=== PATIENT | male | born 1970 | race American Indian/Alaskan Native ===

== ENCOUNTER 2020-07-23 09:28 | Emergency (ER) | payer OTHER ==
[~2020-07-23] VITALS: Ht 188 cm; Wt 106.0 kg
[~2020-07-23 09:28] MED LIST: AZIT250 PO; BLOOD PRESSURE; ESOM20 PO; HYDACE5 PO; NAPR500 PO; OXYACE5T PO; PRAHYD1AE TOP; RXOXYACE PO; TERB24TC TOP
== END 2020-07-23 11:26 | disposition home or self-care (01) ==
LOC: ER 09:28
DX: K42.9 Umbilical hernia without obstruction or gangrene (principal); I10 Essential (primary) hypertension; Z88.6 Allergy status to analgesic agent; Z88.5 Allergy status to narcotic agent; F17.210 Nicotine dependence, cigarettes, uncomplicated
CPT/HCPCS: 76857; 99283-25

== ENCOUNTER 2021-02-15 08:33 | Day surgery (SDC) | payer OTHER, BC ==
[~2021-02-15] VITALS: Ht 188 cm; Wt 105.7 kg
[~2021-02-15 08:33] MED LIST changes: +LISI20 PO; +TAMS.4ER PO; +VITAMIN B125000 MC1 PO; +VITAMIN D310 MC4 PO
--- NOTE | 2021-02-15 09:57 | NUR ---
Ambulatory in Day Surgery. Surgical site prepped with 2% Chlorhexidine cloth wipe. History, Chart, Medications and Allergies reviewed before start of procedure. Lungs clear T/O to Auscultation. Patient confirms NPO status and agrees with scheduled surgery. Pre-Op teaching done. Pt verbalizes understanding. Patient States Post-Procedure ride home has been arranged. Patient reports completing Chlorhexadine shower X2 prior to admission to hospital.
--- NOTE | 2021-02-15 12:18 | NUR ---
Patient up to Ambulate independently. Gait steady. Discharge instructions reviewed with patient. Patient verbalizes understanding. Copy given to patient to take home. Dressing to procedure site clean, dry, intact with no visible drainage, swelling, erythema or bruising noted. Patient States Post-Procedure ride home has been arranged. Discharged via wheelchair to private car for ride home. PROVIDED ONE PAIN PILL TOLERATED PO FLUIDS AND SNACK. PT GOING BACK TO WORK TOMORROW. GAVE PT ABDOMINAL BINDER.
== END 2021-02-15 12:33 | disposition home or self-care (01) ==
LOC: ORSCMMR 08:33 → ORD 08:33 → ORSCMMR 08:34 → ORD 12:33
PROVIDERS: Surgery
PROC: 0WUF0JZ Supplement Abdominal Wall with Synthetic Substitute, Open Approach (ICD-10-PCS; principal; 2021-02-15 10:00)
DX: K42.0 Umbilical hernia with obstruction, without gangrene (principal); I10 Essential (primary) hypertension; F17.210 Nicotine dependence, cigarettes, uncomplicated; K21.9 Gastro-esophageal reflux disease without esophagitis; Z79.899 Other long term (current) drug therapy
CPT/HCPCS: A9270; C1781; J0690; J1100; J1885; J2250; J2405; J2704; J3010; J7120

== ENCOUNTER → 2022-04-28 | Outpatient (CLI) | payer BC ==
[2022-04-30 14:17] LABS: Microalb/Creat Ratio UR, Rand 9.023 mg/g (0.000-30.000)
== END | disposition home or self-care (01) ==
LOC: LAB 08:00 → LAB SHORT 08:00
PROVIDERS: Family Medicine
DX: I10 Essential (primary) hypertension (principal)
CPT/HCPCS: 82043; 82570